=== PATIENT | male | born 1970 | race Caucasian/White ===

== ENCOUNTER 2024-09-20 17:17 | Emergency (ER) | payer MEDICAID ==
[~2024-09-20] VITALS: Ht 180.3 cm; Wt 75.0 kg
[2024-09-20 17:20] VITALS: O2SAT 98
[2024-09-20 18:39] VITALS: BP 150/86; PULSE 99; RESP 16; TEMP 36.61404; O2SAT 97
== END 2024-09-20 22:00 | disposition home or self-care (01) ==
LOC: ER 17:17
DX: F10.129 Alcohol abuse with intoxication, unspecified (principal); Z98.890 Other specified postprocedural states; Y90.9 Presence of alcohol in blood, level not specified
CPT/HCPCS: 99283